=== PATIENT | female | born 1955 | race Caucasian/White ===

== ENCOUNTER 2021-05-20 15:02 | Emergency (ER) | payer OTHER ==
[2021-05-21 08:06] LABS: SARS-CoV-2 NAA Detected (Not Detected)
== END 2021-05-20 17:55 | disposition home or self-care (01) ==
LOC: JVIRT 15:02
DX: Z11.52 Encounter for screening for COVID-19 (principal); J06.9 Acute upper respiratory infection, unspecified
CPT/HCPCS: C9803; Q3014-GT; U0003; U0005